=== PATIENT | male | born 1980 | race Caucasian/White ===

== ENCOUNTER 2017-03-18 10:53 | Emergency (ER) | payer MEDICARE, MEDICAID ==
[~2017-03-18] VITALS: Ht 180.3 cm; Wt 81.6 kg
[2017-03-18 10:59] VITALS: BP_SYST 135
[2017-03-18] MEDS ORDERED: methylPREDNISolone SOD SUCC/PF 62.5 MG/ML VIAL IM ONE (11:30)
[2017-03-18] MEDS ORDERED: ACETAMINOPHEN 500 MG TABLET PO ONE (11:30)
[2017-03-18 12:57] VITALS: BP_SYST 135
== END 2017-03-18 12:46 | disposition home or self-care (01) ==
LOC: SED 10:53
DX: R51 Headache (principal)
CPT/HCPCS: 96372; 99283; J2930